=== PATIENT | male | born 1945 | race Caucasian/White ===

== ENCOUNTER 2016-12-18 08:41 | Emergency (ER) | payer MEDICARE, BC ==
[~2016-12-18 08:41] MED LIST: NO MEDS
[2016-12-18] MEDS ORDERED: KEFLEX500 M4 PO (10:14)
[2016-12-18] MEDS ORDERED: HYDROCODON-ACE1 EA17 PO (10:14)
[2016-12-18 10:18] LABS: URINE BILIRUBIN NEGATIVE (NEG); URINE BLOOD LARGE (NEG); URINE GLUCOSE (UA) NEGATIVE (NEG); URINE KETONE NEGATIVE (NEG); URINE LEUKOCYTE ESTERASE POSITIVE (NEG); URINE NITRITE NEGATIVE (NEG); URINE PROTEIN NEGATIVE (NEG)
[2016-12-18 10:20] LABS: URINE APPEARANCE CLEAR; URINE COLOR PALE YELLOW
[2016-12-18 10:24] LABS: URINE RBC 0-2 /[HPF] (0-5); URINE WBC 0-3 /[HPF] (0-5)
== END 2016-12-18 11:10 ==
LOC: EDMED 08:41
PROVIDERS: Emergency Medicine
PROC: 0T9B70Z Drainage of Bladder with Drainage Device, Via Natural or Artificial Opening (ICD-10-PCS; principal; 2016-12-18)
PROC: 4A0D7LZ Measurement of Urinary Volume, Via Natural or Artificial Opening (ICD-10-PCS; 2016-12-18)
DX: R33.9 Retention of urine, unspecified (principal)